=== PATIENT | male | born 1950 | race Caucasian/White ===

== ENCOUNTER 2021-07-17 12:37 | Emergency (ER) | payer MEDICARE, OTHER ==
[2021-07-17] MEDS ORDERED: HYDROCODON-ACE1 EAC2 PO ×2 (15:53→16:11)
== END 2021-07-17 16:20 | disposition home or self-care (01) ==
LOC: ER1 12:37
DX: S39.012A Strain of muscle, fascia and tendon of lower back, initial encounter (principal); S46.911A Strain of unspecified muscle, fascia and tendon at shoulder and upper arm level, right arm, initial encounter; I48.91 Unspecified atrial fibrillation; I10 Essential (primary) hypertension; Z79.01 Long term (current) use of anticoagulants; Z88.1 Allergy status to other antibiotic agents; Z79.899 Other long term (current) drug therapy; W17.89XA Other fall from one level to another, initial encounter; Y92.009 Unspecified place in unspecified non-institutional (private) residence as the place of occurrence of the external cause
CPT/HCPCS: 72131; 72192; 73030; 99284